=== PATIENT | female | born 1970 | race Caucasian/White ===

== ENCOUNTER 2017-03-20 15:58 | Emergency (ER) | payer OTHER ==
[~2017-03-20 15:58] MED LIST: PCET PO; PROVHFA INH; T PO; XARELTO15 MG PO; XARELTO20 MG PO; [UNRECOGNIZED DRUG - OTHER] PO
== END 2017-03-20 16:11 | disposition home or self-care (01) ==
LOC: ER 15:58
DX: M79.662 Pain in left lower leg (principal); Z98.890 Other specified postprocedural states; Z88.2 Allergy status to sulfonamides; Z91.041 Radiographic dye allergy status; Z88.5 Allergy status to narcotic agent; Z88.8 Allergy status to other drugs, medicaments and biological substances; Z79.899 Other long term (current) drug therapy
CPT/HCPCS: 93971; 99283